=== PATIENT | male | born 1995 | race Caucasian/White ===

== ENCOUNTER 2019-05-04 04:04 | Emergency (ER) | payer OTHER ==
[2019-05-04 04:16] VITALS: BP 137/75; PULSE 63
[2019-05-04] MEDS ORDERED: Amoxicillin 500 MG Cap PO ONE (04:28)
--- NOTE | 2019-05-04 04:34 | EDM.PDOC ---
ED HPI GENERAL MEDICAL PROBLEM - General Chief Complaint: ENT Problem Stated Complaint: LEFT EAR PAIN POSSIBLE INFECTION Time Seen by Provider: 05/04/19 04:23 Source of Information: Reports: Patient, Family History Limitations: Reports: No Limitations - History of Present Illness INITIAL COMMENTS - FREE TEXT/NARRATIVE: The patient presents with bilateral ear pain. This has been going on for about a month but worse the past couple of days. He has some muffled hearing. He has no fever, chills, cough, congestion, runny nose, chest pain or shortness of breath. He has been using a Q tip to clean out his ear and sometimes there is some blood. Onset: Gradual Duration: Week(s): (4) Location: Reports: Other (bilateral ear pain worse on the left) Quality: Reports: Sharp Severity: Moderate Improves with: Reports: None Worsens with: Reports: None Associated Symptoms: Reports: No Other Symptoms Left Ear Pain Score (Numeric/FACES): 7 - Related Data Allergies Allergy/AdvReac Type Severity Reaction Status Date / Time No Known Allergies Allergy Verified 05/04/19 04:15 Home Meds: Home Meds Amoxicillin 1,000 mg PO BID #40 tab 05/04/19 [Rx] Past Medical History - Past Health History Medical/Surgical History: Denies Medical/Surgical History Social & Family History - Tobacco Use Smoking Status *Q: Current Every Day Smoker Years of Tobacco use: 8 Packs/Tins Daily: 1 - Caffeine Use Caffeine Use: Reports: Coffee - Recreational Drug Use Recreational Drug Use: Yes Drug Use in Last 12 Months: Yes Recreational Drug Type: Reports: Marijuana/Hashish Recreational Drug Use Frequency: Weekly ED ROS ENT - Review of Systems Review Of Systems: See Below Constitutional: Reports: No Symptoms HEENT: Reports: Ear Pain Respiratory: Reports: No Symptoms Cardiovascular: Reports: No Symptoms Endocrine: Reports: No Symptoms GI/Abdominal: Reports: No Symptoms : Reports: No Symptoms Musculoskeletal: Reports: No Symptoms ED EXAM, ENT - Physical Exam Exam: See Below Exam Limited By: No Limitations General Appearance: Alert, No Apparent Distress Ears: Normal External Exam, Normal Canal, TM Bulging, TM Dullness, TM Erythema Nose: Normal Inspection Mouth/Throat: Normal Inspection Head: Atraumatic, Normocephalic Neck: Normal Inspection, Supple, Non-Tender Respiratory/Chest: No Respiratory Distress, Lungs Clear, Normal Breath Sounds Cardiovascular: Regular Rate, Rhythm, No Edema, No Murmur GI/Abdominal: Soft, Non-Tender, No Organomegaly, No Mass Course - Vital Signs Last Recorded V/S: Last Vital Signs Temp 98.1 F 05/04/19 04:13 Pulse 63 05/04/19 04:13 Resp 16 05/04/19 04:13 BP 137/75 05/04/19 04:13 Pulse Ox 95 05/04/19 04:13 - Orders/Labs/Meds Orders: Active Orders 24 hr Category Date Time Status Amoxicillin [Amoxil] Med 05/04/19 04:28 Once 1,000 mg PO ONETIME ONE - Re-Assessments/Exams Free Text/Narrative Re-Assessment/Exam: 05/04/19 04:32 The patient has bilateral otitis media. I will give him a dose of antibiotics now and a prescription for more. Departure - Departure Time of Disposition: 04:35 Disposition: Home, Self-Care 01 Condition: Good Clinical Impression: Otitis media Qualifiers: Otitis media type: suppurative Chronicity: acute Laterality: bilateral Recurrence: non-recurrent Spontaneous tympanic membrane rupture: without spontaneous rupture Qualified Code(s): H66.003 - Acute suppurative otitis media without spontaneous rupture of ear drum, bilateral - Discharge Information *PRESCRIPTION DRUG MONITORING PROGRAM REVIEWED*: Not Applicable *COPY OF PRESCRIPTION DRUG MONITORING REPORT IN PATIENT DELON: Not Applicable Prescriptions: Amoxicillin 1,000 mg PO BID #40 tab Referrals: PCP,None [Primary Care Provider] - Valeria Toledo PA-C [Physician Client Representative] - 1 Week Additional Instructions: Take the amoxicillin 2 pills 2 times per day for 10 days. Take tylenol or motrin for pain. Do not put a Q tip in your ear canal. They can be used for the outer ear. Use some running water from a shower to help clean out your ear canal. Please return if you are worse. Sepsis Event Note - Evaluation Sepsis Screening Result: No Definite Risk - Focused Exam Vital Signs: Vital Signs Temp Pulse Resp BP Pulse Ox 05/04/19 04:13 98.1 F 63 16 137/75 95 Date Exam was Performed: 05/04/19 Time Exam was Performed: 04:29 - My Orders Last 24 Hours: My Active Orders 05/04/19 04:28 Amoxicillin [Amoxil] 1,000 mg PO ONETIME ONE - Assessment/Plan Last 24 Hours: My Active Orders 05/04/19 04:28 Amoxicillin [Amoxil] 1,000 mg PO ONETIME ONE
== END 2019-05-04 04:41 | disposition home or self-care (01) ==
LOC: JD.ED 04:04
DX: H66.003 Acute suppurative otitis media without spontaneous rupture of ear drum, bilateral (principal); F17.210 Nicotine dependence, cigarettes, uncomplicated
CPT/HCPCS: 99282; A9270